=== PATIENT | female | born 1965 ===

== ENCOUNTER 2017-03-07 07:11 | Emergency (ER) | payer SELFPAY ==
[~2017-03-07] VITALS: Ht 160 cm; Wt 100.0 kg
[2017-03-07 07:13] VITALS: Ht 160 cm; Wt 100.0 kg
[2017-03-07] MEDS ORDERED: FLUORESCEIN STRIP BOTH EYES ONE (07:30)
[2017-03-07] MEDS ORDERED: TETRACAINE 0.5% 4 ML OPH BOTH EYES ONE (07:30)
[2017-03-07] MEDS ORDERED: VIGA BOTH EYES (07:50)
--- NOTE | 2017-03-07 07:54 | ERD ---
ER Documentation Chief Complaint Date/Time DATE: 03/07/17 TIME: 07:52 Chief Complaint right eye irritation HPI 51-year-old female presents to the emergency department complaining of bilateral eye discomfort. Patient states she was wearing contact lenses. She began having a severe discomfort in her right eye and then a severe discomfort in her left eye over the last 2 days. She denies fevers, chills or other exposures. She reports no visual acuity changes. She reports no discharge other than a clear watery discharge from both eyes. ROS All systems reviewed and are negative except as per history of present illness. Medications Home Meds Active Scripts Moxifloxacin Hcl* (Vigamox*) 0.5% - 3 Ml Opht, 1 DROP BOTH EYES TID for 7 Days, EA Prov:LUCIUS CANTOR 03/07/17 Allergies Allergies: Coded Allergies: No Known Allergy (Unverified , 03/07/17) PMhx/Soc Medical and Surgical Hx: pt denies Medical Hx, pt denies Surgical Hx Hx Alcohol Use: No Hx Substance Use: No Hx Tobacco Use: Yes Smoking Status: Current every day smoker FmHx Noncontributory for chief complaint Physical Exam Vitals Vital Signs Date Time Temp Pulse Resp B/P Pulse Ox O2 Delivery O2 Flow Rate FiO2 03/07/17 07:13 98.4 106 19 134/73 98 Physical Exam General: well developed, well nourished, in no distress. Neuro: Normal speech, gait, balance Ophtho-: Visual acuity is normal bilaterally. Extraocular movements are intact bilaterally with no diplopia. Pupils are midrange, equal round reactive to light bilaterally. Lids lashes and lacrimal ducts appear to be normal bilaterally. Both eyes with fluorescein uptake demonstrate evidence of a conjunctival irritation and early ulceration. Patient has conjunctivitis bilaterally. Anterior chambers bilaterally appear to be quiet and deep. Results 24 hrs Current Medications Medications (Trade) Dose Ordered Sig/Patrick Route PRN Reason Start Time Stop Time Status Last Admin Dose Admin Tetracaine HCl (Tetracaine 0.5% Steri-Unit Marleen) 1 drop ONCE ONCE BOTH EYES 03/07/17 07:30 03/07/17 07:31 DC Fluorescein Sodium ([id number]) 1 strip ONCE ONCE BOTH EYES 03/07/17 07:30 03/07/17 07:31 DC Procedures/MDM Patient was taken to a room, seen and examined. Patient had resolution of discomfort after tetracaine Medical decision makin-year-old female presents with a contact lens associated conjunctivitis bilaterally. Patient has early ulcerations. Visual acuity is normal. Patient appears to be clinically well after reassurance and now appropriate for outpatient care. Departure Diagnosis: Primary Impression: Conjunctivitis Condition: Stable Patient Instructions: Corneal Injury, Contact Lens Additional Instructions: DO NOT wear your contact lenses for at least 1 week. See your eye doctor or return here if you are not better in the next 2 days. Return immediately for any worsening problems or concerns LUCIUS CANTOR Mar 07, 2017 07:54
== END 2017-03-07 08:05 | disposition home or self-care (01) ==
LOC: FTE 07:11
DX: H10.9 Unspecified conjunctivitis (principal); F17.210 Nicotine dependence, cigarettes, uncomplicated
CPT/HCPCS: 99283